=== PATIENT | male | born 1970 | race Caucasian/White ===

== ENCOUNTER 2020-02-17 11:04 | Outpatient (CLI) | payer BC ==
--- NOTE | 2020-02-17 13:16 | ULT ---
THYROID ULTRASOUND: INDICATION: History of thyroid lesion. COMPARISON: None. FINDINGS: No focal thyroid lesion is evident. The left thyroid lobe measures 2.1 x 4.1 x 1.3 cm. The right thyroid lobe measures 2.3 x 4.6 x 1.8 c m. The lateral isthmus measures 0.3 cm. IMPRESSION: No focal thyroid lesion identified. POS: [facility]
== END 2020-02-17 11:05 | disposition home or self-care (01) ==
LOC: SCSULT 11:04
PROVIDERS: ATTEND Family Medicine
DX: E07.89 Other specified disorders of thyroid (principal)
CPT/HCPCS: 36415; 76536; 84439; 84443; 84481; 86376; 86800